=== PATIENT | female | born 1975 | race Caucasian/White ===

== ENCOUNTER → 2016-05-09 | Day surgery (SDC) | payer OTHER ==
[~2016-05-09] MED LIST: BUPIVACAINE 0.25% 30 ML VIAL ONE; CEFAZOLIN 1 GM VIAL ONE; DEXAMETHASONE 4 MG/ML VIAL IV ONE; FENTANYL 100 MCG/2 ML VIAL IV PRN; GLYCOPYRROLATE 1 MG VIAL IM ONE; HYDROmorphone 1 MG INJECTION IV PRN; HYDROmorphone 2 MG/ML VIAL IM ONE; LABETALOL 20 MG/4 ML SYRINGE IV PRN; MEPERIDINE 25 MG/ML TUBEX IV PRN; METOCLOPRAMIDE 10 MG/2 ML VIAL IV ONE; MIDAZOLAM 2 MG/2 ML VIAL IV ONE; NEOSTIGMINE 1 MG/1 ML (1:1000) INJ 10 ML MDV IM ONE; ONDANSETRON HCL 4 MG ODT TAB PO PRN; ONDANSETRON HCL 4 MG/2 ML VIAL IV ONE; ONDANSETRON HCL 4 MG/2 ML VIAL IV PRN; PROPOFOL 200 MG/20 ML VIAL IV ONE; ROCURONIUM 50 MG/5 ML VIAL IV ONE; SCOPOLAMINE TRANSDERMAL PATCH TOP ONE; hydrALAZINE 20 MG/ML VIAL IV PRN
--- NOTE | 2016-05-09 06:54 | HIM.ANES ---
Anesthesia Evaluation & Plan Diagnoses: ENDOMETRIOSIS OF OVARY (05/09/16) Consented Procedure: LAPAROSCOPIC LEFT OVARIAN CYST DRAINAGE AND POSSIBLE LEFT CYSTECTOMY AND LEFT OOPHORECTOMY - Focused Review of Systems Cardiac History: Yes: Hx Hypertension, Hx Cardia Arrhythmia (PVC'S), Hx Cardiac Disorders HEENT: No: Loose/Decaying Teeth, Other HEENT Problems Hx Other HEENT Surgery: sinus issues Respiratory: Yes: Hx Snoring Gastrointestinal: Yes: Hx Gastroesophageal Reflux Disease, Hx Gastrointestinal Disorders, Hx Chronic Constipation Neurological/Musculoskeletal: Yes: Hx Back Pain (LUMBAR) No: Hx Neurological Disorders Psychological: Yes Hx Anxiety, Yes Hx Depression, Yes Hx Mental/Emotional Disorders Blood/Autoimmune: No: Hx AIDS, Hx Hepatitis (type) Smoking Status: Never smoker Hx Echocardiogram (date): Yes (01/27/2015 EF 65% NORMAL) Other Surgical History: 2 C SECTIONS - Focused Physical Exam NPO since: 05/08/16 2200 Mallampati: Class II Thyromental Distance: Greater than 3 Neck: Full Range of Motion Dental: Normal - no significant findings Cardiovascular/Chest: Normal (RRR no mumurs or rubs.) Respiratory: Lungs clear. negative: Rhonchi, Wheezing Any problems with anesthesia, including nausea and vomiting?: Yes (N&V) Any relatives with a history of Malignant Hyperthermia?: No Does patient have a history of Malignant Hyperthermia?: No Beta Reba given (if appropriate): Yes Does the patient have a history of Motion Sickness-: No Other: Allergies Allergy/AdvReac Type Severity Reaction Status Date / Time No Known Allergies Allergy Verified 05/09/16 06:18 Home Medications Medication Instructions Recorded Last Taken Type Alprazolam [Xanax] 0.25 mg PO Q8H PRN 05/05/16 Unknown History Atenolol 100 mg PO BID 05/05/16 05/09/16 05:00 History Escitalopram Oxalate [Lexapro] 20 mg PO DAILY 05/05/16 05/09/16 05:00 History Esomeprazole Mag Trihydrate 40 mg PO DAILY 05/05/16 05/09/16 05:00 History [Nexium] Linaclotide [Linzess] 145 mcg PO DAILY 05/05/16 05/07/16 History Multivitamin W/Iron, Minerals 1 each PO DAILY 05/05/16 05/08/16 History [Compete] Height and Weight Patient's height 5 ft 2 in Patient's weight 83.915 kg Vital Signs Temperature 98.1 F 05/09/16 06:20 Pulse Rate 76 05/09/16 06:20 Respiratory Rate 16 05/09/16 06:20 Blood Pressure 119/70 05/09/16 06:20 Pulse Oxygen Saturation 95 05/09/16 06:20 METS - Level of Activity: Climbing stairs(1 flight),walking level ground, running short distance - Anesthetic Plan Anesthesia Type: General ASA Class: 2 -: I have examined this patient and reviewed the medical record. The patient has been assessed prior to anesthesia. Risks and benefits of anesthesia and anesthetic technique options have been discussed and all questions answered. The patient accepts the risk and desires me to proceed with the planned anesthetic.
--- NOTE | 2016-05-09 08:44 | HIMOPRPT ---
DATE OF PROCEDURE: May 09, 2016 PREOPERATIVE DIAGNOSIS: Endometrioma of the ovary POSTOPERATIVE DIAGNOSIS: Same PROCEDURE: Laparoscopic left ovarian cystectomy SURGEON: Arabella Tyson DO ANESTHESIOLOGIST: Dr. Cloud ANESTHESIA: General ESTIMATED BLOOD LOSS: 15 mL COMPLICATIONS: None DRAINS: 550 mL of clear urine drained into the Wells by the end the procedure SPECIMENS: Left ovarian endometrioma FINDING: Normal appearing uterus, normal appearing right tube and ovary, normal appearing left tube and left ovary with large endometrioma DESCRIPTION OF PROCEDURE: The patient was taken to the operating room where she is prepped and draped in the normal sterile fashion. A Wells catheter was inserted as well as an Allis clamp on the cervix to aid in uterine manipulation. Attention was then turned to the already prepped abdomen. The subumbilical region was injected with 0.25 % plain Sensorcaine and an incision was made with a scalpel. A 5 mm port was placed under direct visualization using the laparoscope and then the abdomen was insufflated with gas. The patient was then placed in Trendelenburg position and a left lower quadrant port was placed after injecting 0.25% plain Sensorcaine, an 11 mm port. This was repeated in the right lower quadrant which a 5 mm port was placed. After this the pelvis was inspected and findings were noted as above. The endometrioma was isolated and punctured with the Harmonic scalpel. The contents were then removed using the suction slab conditioner supervisor. The contents were noted to be old blood, brown in appearance. Consistent with a chocolate cyst. After draining of the cyst there is noted to be a large cyst wall hanging off a normal appearing ovary. The cyst wall was then removed using the Harmonic scalpel. The cyst was removed through the left lower quadrant port. The ovary was inspected and there was 1 area noted to be bleeding. This area was made hemostatic using the Harmonic scalpel. The pelvis was then inspected again and noted to be normal in appearance with good hemostasis. At this time the procedure was ended. The patient taken out of Trendelenburg position and the gas was let out of the abdomen. Ports were removed and port sites were closed using 4 Monocryl in a subcuticular stitch with Dermabond on top skin. The Wells catheter was removed from the bladder and the Allis clamp was removed from the cervix. The patient was sent to recovery room in stable condition.
[2016-05-09 10:30] VITALS: TEMP 97.6
[2016-05-09 11:30] VITALS: PULSE 89
[2016-05-09 14:49] VITALS: BP 119/63
--- NOTE | 2016-05-09 14:49 | SC.ANESPOS ---
Post-Anesthesia Note LOC: Fully Awake Post-Anesthesia Assessment: Awake, Returned to Baseline, Hemodynamically Stable , Pain Control Adequate Phase I & II Recovery Complete: Yes Apparent Anesthesia Complication: No : N PACU Discharge Time: 09:30 - Vital Signs Blood Pressure: 119/63 Pulse: 89 Resp Rate: 16 O2 Sat: 95 Temp: 97.6 F - Comments Anesthesia Discharge Time Report Time 09:30
== END ==
LOC: SDC 05:50
PROVIDERS: ATTEND Obstetrics & Gynecology
PROC: 0UB14ZZ Excision of Left Ovary, Percutaneous Endoscopic Approach (ICD-10-PCS; principal; 2016-05-09 07:15)
DX: N80.1 Endometriosis of ovary (principal); I10 Essential (primary) hypertension; K21.9 Gastro-esophageal reflux disease without esophagitis; F41.9 Anxiety disorder, unspecified; F32.9 Major depressive disorder, single episode, unspecified; Z79.899 Other long term (current) drug therapy; E66.9 Obesity, unspecified; Z68.33 Body mass index [BMI] 33.0-33.9, adult
CPT/HCPCS: 49322; J0690; J1100; J1170; J2250; J2405; J2710; J2765; J3490; S0020